=== PATIENT | female | born 1985 | race Hispanic/Latino ===

== ENCOUNTER 2020-05-19 12:37 | Emergency (ER) | payer SELFPAY ==
[~2020-05-19] VITALS: Ht 165.1 cm; Wt 88.0 kg
[2020-05-19] MEDS ORDERED: AMOXICILLIN500 M2 PO (15:15)
[2020-05-19 15:19] VITALS: BP 142/80
--- NOTE | 2020-05-21 13:45 | NUR ---
CALL PLACE TO PT.; PT GREEK SPEAKING, AISHWARYA HELLER LPN PRESENT INTERPRETOR; YUMIKO RESULTS GIVEN TO PT; PT ASKED IF COULD HAVE COPY OF RESULTS,INSTRUCTED TO CALL MEDICAL RECORDS ON SUNDAY AND WOULD BE ABLE TO GET RESULTS THEN; PT ALSO INSTRUCTED TO QUARANTINE FOR AT LEAST 2 WEEKS AND FOLLOW UP WITH PRIMARY DOCTOR.
== END 2020-05-19 15:39 | disposition home or self-care (01) | DRG 179 ==
LOC: ED 12:37
DX: U07.1 COVID-19 (principal); J02.0 Streptococcal pharyngitis